=== PATIENT | male | born 1940 | race Caucasian/White ===

== ENCOUNTER 2016-09-05 13:29 | Emergency (ER) | payer MEDICARE, OTHER ==
[~2016-09-05] VITALS: Ht 162.6 cm; Wt 59.9 kg
[~2016-09-05 13:29] MED LIST: ALLOPURINOL100 MG PO; ALLOPURINOL300 M1 PO; ALLOPURINOL300 MG PO; APRESOLINE 10MG10 MG PO; ASCORBIC ACID500 M2 PO; CEFTIN500 MG PO; FISH OIL1000 MG PO; FLOMAX0.4 MG PO; IMDUR 30MG. TAB30 MG PO; KLOR-CON 1010 MEQ PO; LEVAQUIN 750 M750 MG PO; LEVAQUIN250 M1 PO; LEVOTHYROXIN0.075 M1 PO; LISINOPRIL20 MG PO; MEDROL 4MG. DOSE4 MG PO; METOCLOPRAMIDE10 M2 PO; MICRO-K 1010 MEQ PO; MINOCYCLINE HC100 MG PO; MULTIVITAMIN1 TA1 PO; NORVASC 10MG. T10 MG PO; OMEPRAZOLE D/R20 MG; OMNICEF 300 MG300 MG PO; PRAVACHOL20 MG PO; PRAVASTATIN 20M20 MG PO; PREVACID 30MG C30 M1 OR; PRILOSEC20 M1 PO; REGLAN 10 MG TA10 MG PO; ST. JOSEPH81 MG PO; SYNTHROID 0.0.075 MG PO; TEKTURNA300 MG PO; TOPROL XL 50MG50 MG PO; VANCOMYCIN1.5 GM/252 IV; VITAMIN D PO; ZETIA10 MG PO
--- NOTE | 2016-09-05 13:37 | Emergency Room Report ---
History of Present Illness Time Seen by MD Lamb Presenting Problem in Triage Pt arrived: Presenting Problem: Onset of symptoms date/time:/ or onset unknown for: Treatment Prior to Arrival: SALESPERSON [facility] Provided by: Sepsis Risk Assessment: Temp: B/P: MAP: Pulse: Resp: Recent fever? Clinical Suspician of Infection? Mental Status: Sepsis Risk: Have you (or family members/close friends) recently traveled outside the [place]? If Yes, where/when: Have you had exposure to infectious disease within the past month? TB? Other? Specify: Source patient, RN notes reviewed Exam Limitations no limitations Comment Pt brought to the ED by his because she feels he is a little more confused today than usual but when triaged, answered questions appropriately. 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 He drinks 2 to 3 ensure per day and has not had a BM in about a week and andhe feel he is constipated and he does complain of some abd. pain but no vomiting or diarrhea and no fever. Cardiac Chest Pain Chest pain indicative of cardiac No ALLERGIES Coded Allergies: tolterodine (From DETROL) (Mild, unknown 12/07/15) Home Medications Active Scripts Levofloxacin (Levaquin) 250 MG PO DAILY #7 TAB Prov: 02/22/16 ISOSORBIDE MONONITRATE (IMDUR 30MG) 30 MG PO DAILY #30 Ref 2 Prov: 02/21/11 Reported Medications Levothyroxine Sodium (Levothyroxine 0.075MG) 0.075 MG PO DAILY #30 Pravastatin Sodium (Pravastatin 20MG) 20 MG PO MoWeFr Metoprolol Succinate Xl (Toprol Xl) 25 MG PO DAILY Allopurinol 300 MG PO DAILY Potassium Chloride (Klor-Con) 10 MEQ PO DAILY Ezetimibe (Zetia) 10 MG PO DAILY TAMSULOSIN HCL (Flomax) 0.4 MG PO DAILY OMEPRAZOLE MAGNESIUM (Prilosec 20MG) 20 MG PO DAILY Multiple Vitamin (Multivitamin) 1 TAB PO DAILY AMLODIPINE BESYLATE (Norvasc) 10 MG PO DAILY Aspirin ([place] ASA EC 81MG) 81 MG PO DAILY ASCORBIC ACID (Vitamin C) 500 MG PO DAILY METOCLOPRAMIDE HCL (Metoclopramide 10MG) 10 MG PO BID Lisinopril 20 MG PO DAILY #30 History Medical History General CAD? No Angina: Yes [place]: Yes Hypertension? Yes Hyperlipidemia? Yes CHF? No DVT? No PE? No COPD? No Asthma? Yes Anemia? No GERD? Yes Gastric ulcers? No GI Bleed? No Hernia? Yes Thyroid Problems? No Hypothyroidism? Yes CVA? Yes Seizures? No Diabetes? No Insulin Dependent: No Insulin Pump: No Home FSBS? No Renal Insuffiency? No End Stage Renal Disease? No UTI? Yes Stones? No BPH? No GB Disease: No Nephritic Syndrome? No Asplenia? No Hepatitis? No Sickle Cell Disease? No Arthritis? No Migraines? No Cataracts? No Glaucoma? No MRSA? No HIV? No TB? No Anxiety? No Depression? No Cancer? Yes Site: LUNG,SKIN,ESOPHAGEAL More? Yes Additional hx: Lung CANCER ESG Cancer GOUT Immunization Hx DT/Tetanus > 10 Years Ago Flu 2015-FSN Pneumonia Received In Past Surgical Hx Previous Surgery?Y LEFT LUNG REMOVED TESTICLE REMOVED Hernia Repair SKIN CA REMOVED L ARM EGD Family History Family Hx Diabetes No CAD Yes Hypertension Yes Hyperlipidemia Yes Cancer Yes TB No Social History Smoking Hx Packs/day N/A Alcohol Alcohol: No Review of Systems All Other Systems Reviewed and Negative Constitutional see HPI Gastrointestinal see HPI Physical Exam Vital Signs Vital Signs Date Time Temp Pulse Resp B/P Pulse O2 O2 Flow FiO2 Ox Delivery Rate 09/05 1441 64 18 127/76 97 09/05 1407 97.8 63 18 120/68 96 09/05 1334 97.4 77 18 135/63 96 General Appearance normal appearance, no apparent distress Respiratory Status No: respiratory distress. 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 No Results/Orders Laboratory Tests 09/05/16 1416: Sodium 138, Potassium 4.6, Chloride 103, Carbon Dioxide 27, BUN 24 H, Creatinine 1.6 H, Estimated Creat Clear 32 L, Estimated GFR (MDRD) 42, Glucose 104, Calcium 9.9, Total Bilirubin 0.5, AST 14 L, ALT 17, Alkaline Phosphatase 96, Total Protein 7.5, Albumin 3.2 L, Globulin 4.3 H, Albumin/Globulin Ratio 0.7 L, WBC 8.5, RBC 3.59 L, Hgb 10.7 L, Hct 33.3 L, MCV 92.8, RDW 15.7, Plt Count 206, MPV 5.9 L, Gran % 82.3 H, Gran # 7.0, Lymphocytes % 10.4, Monocytes % 5.9, Eosinophils % 1.0, Basophils % 0.4, Lymphocytes # 0.9, Monocytes # 0.5, Eosinophils # 0.1, Basophils # 0.0, PUBS MCHC 32.1, MCH 29.8 Current Medication Orders Sig/Oswald Start time Last Medication Dose Route Stop Time Status Admin Magnesium Citrate 1 BOT ONCE ONE 09/05 1500 DC PO 09/05 1501 Sodium Chloride 1,000 ML .STK-MED ONE 09/05 1420 DC IV Sodium Chloride 10 ML PRN PRN 09/05 1400 AC IV 09/06 1357 Sodium Chloride 1,000 ML .Q10H 09/05 1400 AC 09/05 IV 09/06 0158 1436 Sodium Chloride 10 ML PRN PRN 09/05 1400 AC IV 09/06 1358 Orders Procedure Date/time Status ABD ACUTE(MUL VIEWS) 09/05 1358 Active IV SALINE LOCK 09/05 1358 Active URINALYSIS/COMPLETE 09/05 1358 Active CBC WITH AUTO DIFF 09/05 135 Complete CHEM 12 PROFILE 09/05 1358 Complete Departure Departure Time of Disposition 1501 Disposition DC Home or Self Care(routine) Clinical Impression Primary Impression: Constipation by delayed colonic transit Condition STABLE Referrals Agustin Jeong MD (Family): 2 Days-Call Office Patient Instructions Constipation, Constipation (Alternative Therapy), DI for Constipation Additional Instructions Take 2 ounces of Magnesium Citrate every 4 hours until he has a bowel movement and then stop. Encourage him to drink more water if he can Discharge Counseling Counseled pt/family regarding diagnosis, test results, medications/RX, home care, follow up needs ED Critical Care Critical Care No If Critical Care minutes are documented, the time involved in the performance of seperately reportable procedures was not counted toward critical care time documented. I directly delivered medical care to this critically ill and/or injured patient. Timely evaluation and treatment was necessary to address the significant organ system(s) dysfunction present in this patient. at [phone]
[2016-09-05 14:33] LABS: HEMOGLOBIN 10.7 g/dL (14.1-18.0); LYMPH # 0.9 K/mm3 (0.7-4.5); LYMPH % 10.4 % (10-50)
[2016-09-05 15:11] VITALS: BP 120/75
--- NOTE | 2016-09-06 11:15 | RADIOLOGY REPORT PS360 ---
ABD ACUTE(MUL VIEWS) Ordering Physician: Terrance Moyer MD Patient Age: 76 years: Male HISTORY: constipation TECHNIQUE: Upright chest with flat and upright views abdomen COMPARISON is made to 04/06/2016 FINDINGS Chest: Opacification left hemithorax from pneumonectomy. Postsurgical changes left evangelina. Shifted mediastinum to the left. These findings are unchanged since 2016 Flat and upright views of abdomen reveal no free air. No bowel obstruction. Today's study shows show increased stool throughout colon, particularly prominent stool evident at the right colon. Appearance reflecting mild/moderate constipation Incidental note of retained barium sigmoid diverticula reflects underlying diverticulosis Surgical clip right upper quadrant reflect cholecystectomy. IMPRESSION: Moderate constipation noted Particularly noting the large amount of stool/ increased stool throughout the right colon. Diverticulosis sigmoid colon noted Stable chest. Left pneumonectomy with opacification left hemithorax again observed- unchanged
== END 2016-09-05 15:21 | disposition home or self-care (01) ==
LOC: ER 13:29
PROVIDERS: General Practice
DX: K59.01 Slow transit constipation (principal); I10 Essential (primary) hypertension

== ENCOUNTER 2017-02-08 17:46 | Emergency (ER) | payer OTHER, MEDICARE ==
[~2017-02-08] VITALS: Ht 162.6 cm; Wt 54.4 kg
--- NOTE | 2017-02-08 17:55 | Emergency Room Report ---
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 Clinical Suspician of Infection? Mental Status: Sepsis Risk: Have you (or family members/close friends) recently traveled outside the [place]? If Yes, where/when: Have you had exposure to infectious disease within the past month? TB? Other? Specify: Source patient, RN notes reviewed Exam Limitations no limitations Comment Pt has Esophageal Cancer pt and has been followed by Hospice since September. Last night his legs started feeling really heavy, "like concrete" and Hospice sent him to the ED to get CT of Head and CT of L spine to make sure he does not have Cancer spread to the bone or to the brain. He is a very nice gentleman and very [place] and he just wants to make sure he doesn't have something worse or to see if there is something he can do something about to make him feel a little better Cardiac Chest Pain Chest pain indicative of cardiac No ALLERGIES Coded Allergies: tolterodine (From DETROL) (Mild, unknown 12/07/15) Home Medications Active Scripts ISOSORBIDE MONONITRATE (IMDUR 30MG) 30 MG PO DAILY #30 Ref 2 Prov: 02/21/11 Reported Medications Levothyroxine Sodium (Levothyroxine 0.075MG) 0.075 MG PO DAILY #30 Pravastatin Sodium (Pravastatin 20MG) 20 MG PO MoWeFr Allopurinol 300 MG PO DAILY Potassium Chloride (Klor-Con) 10 MEQ PO DAILY Ezetimibe (Zetia) 10 MG PO DAILY TAMSULOSIN HCL (Flomax) 0.4 MG PO DAILY OMEPRAZOLE MAGNESIUM (Prilosec 20MG) 20 MG PO DAILY Multiple Vitamin (Multivitamin) 1 TAB PO DAILY AMLODIPINE BESYLATE (Norvasc) 10 MG PO DAILY Aspirin ([place] ASA EC 81MG) 81 MG PO DAILY ASCORBIC ACID (Vitamin C) 500 MG PO DAILY METOCLOPRAMIDE HCL (Metoclopramide 10MG) 10 MG PO BID Lisinopril 20 MG PO DAILY #30 (Terrance Moyer MD) History Medical History General CAD? No Angina: Yes [place]: Yes Hypertension? Yes Hyperlipidemia? Yes CHF? No DVT? No PE? No COPD? No Asthma? Yes Anemia? No GERD? Yes Gastric ulcers? No GI Bleed? No Hernia? Yes Thyroid Problems? No Hypothyroidism? Yes CVA? Yes Seizures? No Diabetes? No Insulin Dependent: No Insulin Pump: No Home FSBS? No Renal Insuffiency? No End Stage Renal Disease? No UTI? Yes Stones? No BPH? No GB Disease: No Nephritic Syndrome? No Asplenia? No Hepatitis? No Sickle Cell Disease? No Arthritis? No Migraines? No Cataracts? No Glaucoma? No MRSA? No HIV? No TB? No Anxiety? No Depression? No Cancer? Yes Site: LUNG,SKIN,ESOPHAGEAL More? Yes Additional hx: Lung CANCER ESG Cancer GOUT Immunization Hx DT/Tetanus > 10 Years Ago Flu 2015-FSN Pneumonia Received In Past Surgical Hx Previous Surgery?Y LEFT LUNG REMOVED TESTICLE REMOVED Hernia Repair SKIN CA REMOVED L ARM EGD Family History Family Hx Diabetes No CAD Yes Hypertension Yes Hyperlipidemia Yes Cancer Yes TB No Social History Smoking Hx Packs/day N/A Alcohol Alcohol: No (Terrance Moyer MD) Review of Systems All Other Systems Reviewed and Negative Constitutional see HPI Gastrointestinal see HPI Musculoskeletal see HPI Psychiatric/Neurological see HPI (Terrance Moyer MD) Physical Exam Vital Signs Vital Signs Date Time Temp Pulse Resp B/P Pulse O2 O2 Flow FiO2 Ox Delivery Rate 02/08 1856 76 18 155/95 97 02/08 1750 97.9 85 18 141/83 97 General Appearance no apparent distress Respiratory Status No: respiratory distress. 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 No Results/Orders Laboratory Tests 02/08/17 1815: Sodium 136, Potassium 4.6, Chloride 100, Carbon Dioxide 30, BUN 18, Creatinine 1.3, Estimated Creat Clear 36 L, Estimated GFR (MDRD) 53, Glucose 102, Calcium 10.1, Total Bilirubin 0.4, AST 14 L, ALT 20, Alkaline Phosphatase 103, Total Protein 7.8, Albumin 3.3 L, Globulin 4.5 H, Albumin/Globulin Ratio 0.7 L, WBC 9.5, RBC 3.86 L, Hgb 10.3 L, Hct 33.5 L, MCV 86.7, RDW 16.9, Plt Count 241, Gran % 79.6, Gran # 7.6, Lymphocytes % 13.6, Monocytes % 6.8, Lymphocytes # 1.3, Monocytes # 0.6, PUBS MCHC 30.7 L, MCH 26.7 L Current Medication Orders Sig/Oswald Start time Last Medication Dose Route Stop Time Status Admin Sodium Chloride 10 ML PRN PRN 02/08 1815 AC IV 02/09 1807 Orders Procedure Date/time Status DIET-NOTHING BY MOUTH 02/[address] LUMBAR SPINE W/O CONTRAST 02/[address] HEAD W/O CONTRAST 02/[address] HEAD REQ 02/[address] SCAN REQUEST 02/08 1807 Complete IV SALINE LOCK 02/08 1807 Active CBC WITH AUTO DIFF 02/08 1807 Complete CHEM 12 PROFILE 02/08 1807 Complete Departure Departure Time of Disposition 1844 Condition STABLE Referrals Agustin Jeong MD (Family): 2 Days-Call Office Discharge Counseling Counseled pt/family regarding diagnosis, test results, home care, follow up needs ED Critical Care Critical Care No If Critical Care minutes are documented, the time involved in the performance of seperately reportable procedures was not counted toward critical care time documented. I directly delivered medical care to this critically ill and/or injured patient. Timely evaluation and treatment was necessary to address the significant organ system(s) dysfunction present in this patient. (Terrance Moyer MD) Departure Disposition DC Home or Self Care(routine) Clinical Impression Primary Impression: Esophageal cancer Qualifiers: Malignant neoplasm of esophagus location: lower third Qualified Code: C15.5 - Malignant neoplasm of lower third of esophagus Secondary Impressions: Degenerative disc disease, lumbar, Hospice care patient Patient Instructions DI for Low Back Pain Additional Instructions resume hospice care Discharge Counseling Counseled pt/family regarding diagnosis, test results, follow up needs (Claire Howard MD) at 1846 at 1904
[2017-02-08 18:25] LABS: HEMOGLOBIN 10.3 g/dL (14.1-18.0)
[2017-02-08 18:26] LABS: LYMPH # 1.3 K/mm3 (0.7-4.5); LYMPH % 13.6 % (10-50)
[2017-02-08 19:12] VITALS: BP 172/86
--- NOTE | 2017-02-08 22:57 | RADIOLOGY REPORT PS360 ---
CT HEAD WITHOUT CONTRAST CT BONE WINDOWS included ORDERING PHYSICIAN : Terrance Moyer MD PATIENT AGE: 76 years GENDER: Male PROCEDURE: Routine axial images headwithout contrast. Brain & bone windows HISTORY: HX ESOPHAGEAL CANCER, CONCERN FOR METS, TERESITA LEG WEAKNESS COMPARISON: None FINDINGS: No acute intracranial findings. No hemorrhage. No. No mass effect or mass lesion. No subdural nor extra-axial collection. Prominent diffuse cerebral atrophy. Slight Advanced for age . likely chronic small vessel deep white matter ischemic changes related hemispheres Mild/moderate dilatation of lateral ventricles most likely reflects the cerebral atrophy. Calcification along the left wall of the body of left lateral ventricle likely old feature possibly remote old viral infection. The posterior fossa appear satisfactory and unremarkable. The skull is intact. No acute paranasal sinus disease. There is an old chronic changes left maxillary sinus. Cerumen external canal on right. Mastoid air cells are well-developed and clear, middle ear & IACs are unremarkable. IMPRESSION: 1 No acute intracranial findings. 2. Prominent diffuse cerebral atrophy. Slight Advanced for age no mass lesion evident. 3. No evidence of metastatic disease on this noncontrast CT study. If focal or new neurologic symptoms consider postcontrast MRI or CT. With given history of esophageal neoplasm.
--- NOTE | 2017-02-11 18:48 | RADIOLOGY REPORT PS360 ---
CT LUMBAR SPINE W/O CONTRAST Bilateral leg weakness HISTORY: HX ESOPHAGEAL CANCER, CONCERN FOR METS, TERESITA LEG WEAKNESS Patient Age: 76 years: Male Ordering Physician: Cliare Howard MD TECHNIQUE: Helical CT scanning performed today lumbar spine with sagittal coronal reconstructions on CT workstation. Also additional oblique reconstructions through lower 3 disc levels COMPARISON :Previous CT abdomen from 2014 used for comparison FINDINGS No acute fracture nor subluxation Vertebral bodies appear stable with No acute compression fracture . A very slight decreased height at L1 appear to be a stable features of previous 2015 CT.. L5/S1 disc intact. Moderate facet arthropathy, hypertrophy. L4/5 disc space narrowing with vacuum phenomena . Moderate Diffuse disc bulge. Moderate facet and ligament flavum hypertrophy. These features do slightly of the spinal canal with borderline central canal stenosis. Mild foraminal encroachment slightly more evident to the left L3/4 only scant disc space narrowing. Mild diffuse disc bulge. Minimal facet arthropathy. L2/3. Mild disc space narrowing with vacuum phenomena. Disc intact with no herniation. L1/2. Mild degenerative disc space narrowing with vacuum phenomena. T12/L1. Mild disc space narrowing. No significant bulge or protrusion at this or L1, L2/3 levels. T11/12 disc space narrowing without vacuum phenomena. Mild facet hypertrophy. Kidneys included and unremarkable. Aorta calcified generous caliber but no significant aneurysmal dilatation. Prominent stool at the visualized rectosigmoid colon. Diverticulosis sigmoid colon. When compared to 2015 there is slight progressive vacuum phenomena and and perhaps scant additional degenerative disc changes at levels noted above IMPRESSION: 1. No fracture nor subluxation. No acute findings the lumbar spine 2. Multilevel degenerative disc changes and spondylosis. Only subtle progression since 2015 Facet hypertrophy most evident at L5/S1 and L4/5.. 3. Degenerative changes most evident L4/5:. Disc space narrowing, with mild disc bulge along with facet hypertrophy most evident at this level. Together Yield slight narrowing the spinal canal borderline spinal stenosis. . On final review I question there could be a slight additional slight additional disc bulge, question mild disc protrusion at towards the right foramen of 4/5 level.. Questionable significance but Could be relevant if if specific right L4 radicular symptoms .
== END 2017-02-08 19:12 | disposition home or self-care (01) ==
LOC: ER 17:46
PROVIDERS: General Practice
DX: C15.5 Malignant neoplasm of lower third of esophagus (principal); M51.36 Other intervertebral disc degeneration, lumbar region; Z88.8 Allergy status to other drugs, medicaments and biological substances; Z79.82 Long term (current) use of aspirin; I10 Essential (primary) hypertension; J45.909 Unspecified asthma, uncomplicated; K21.9 Gastro-esophageal reflux disease without esophagitis; E03.9 Hypothyroidism, unspecified